=== PATIENT | female | born 1940 | race Caucasian/White ===

== ENCOUNTER 2020-02-07 23:21 | Emergency (ER) | payer MEDICARE ==
[~2020-02-07] VITALS: Ht 167.6 cm; Wt 65.9 kg
--- NOTE | 2020-02-07 23:55 | PHYS DOC ---
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 Alcohol Use: None General Adult EDM: Chief Complaint: WEAKNESS/GENERALIZED HPI: HPI: The history was obtained from the patient. Patient is a 79-year-old female with PMH diabetes, hypertension, ulcerative colitis status post colectomy who presents with a chief complaint of generalized weakness. Patient states 2 hours prior to arrival she began developing generalized weakness. She states she noted extreme lightheadedness when she went to stand up and try to ambulate. She notes a history of low sodium that is required IV fluids in the past. She states she is on water restriction at home. She states she feels as though her sodium is low again. She denies any polyuria, dysuria, hematuria. She denies any polydipsia. Denies any chest pain. Does note some shortness of breath particular when she breathes in deeply. Denies any history of blood clot in legs or lungs. Notes a history of colectomy years ago due to ulcerative colitis. Denies any changes to her ostomy output. Denies syncope. Denies recent changes to her medications. States she is been instructed over time she feels generally weak to report to the emergency department. She does note 1 episode of vomiting prior to arrival. No other complaints. Review of Systems: Review of Systems: Constitutional: General weakness Eyes: Denies change in visual acuity HENT: Denies nasal congestion or sore throat Respiratory: Denies cough or shortness of breath Cardiovascular: Denies chest pain or edema GI: Positive for vomiting : Denies dysuria Musculoskeletal: Denies back pain or joint pain Integument: Denies rash Neurologic: Denies headache, focal weakness or sensory changes Endocrine: Denies polyuria or polydipsia Lymphatic: Denies swollen glands Psychiatric: Denies depression or anxiety Heart Score: Risk Factors: Risk Factors: DM, Current or recent (<one month) smoker, HTN, HLP, family history of CAD, obesity. Risk Scores: Score 0 - 3: 2.5% MACE over next 6 weeks - Discharge Home Score 4 - 6: 20.3% MACE over next 6 weeks - Admit for Clinical Observation Score 7 - 10: 72.7% MACE over next 6 weeks - Early Invasive Strategies Allergies: Allergies: Allergies Coded Allergies Type Severity Reaction Last Updated Verified Penicillins Allergy Intermediate 02/07/20 Yes Physical Exam: PE: Constitutional: Well developed, well nourished, no acute distress, non-toxic appearance. [] HENT: Normocephalic, atraumatic, bilateral external ears normal, oropharynx moist, no oral exudates, nose normal. [] Eyes: PERRLA, EOMI, conjunctiva normal, no discharge. [] Neck: Normal range of motion, no tenderness, supple, no stridor. [] Cardiovascular:Heart rate regular rhythm, no murmur [] Lungs & Thorax: Bilateral breath sounds clear to auscultation [] Abdomen: soft, no tenderness, no masses, no pulsatile masses. [] Skin: Warm, dry, no erythema, no rash. [] Back: No tenderness, no CVA tenderness. [] Extremities: No tenderness, no cyanosis, no clubbing, ROM intact, no edema. Left AKA noted. [] Neurologic: Alert with intact cognitive function. No aphasia, dysarthria, or neglect. GCS 15. Pupils 3 mm briskly reactive b/l. No APD present. Cranial nerves 2-12 grossly intact; no facial asymmetry present, tongue midline, shoulder shrugging strength intact. Strength 5/5 and symmetric throughout. Light touch sensation intact throughout. Cerebellar testing appropriate without evidence of dysdiadochokinesia. DTR's 2+ in all 4 extremities. Negative pronator drift bilaterally. Gait deferred. Psychologic: Affect normal, judgement normal, mood normal. [] Current Patient Data: Labs: Laboratory Tests Test 02/08/20 00:25 02/08/20 00:35 Urine Collection Type Unknown Urine Color Yellow Urine Clarity Clear Urine pH 7.5 Urine Specific [place] 1.020 Urine Protein Neg Urine Glucose (UA) Neg mg/dL Urine Ketones (Stick) Neg mg/dL Urine Blood Trace Urine Nitrite Neg Urine Bilirubin Neg Urine Urobilinogen Dipstick 0.2 mg/dL Urine Leukocyte Esterase Neg Urine RBC 1-2 /HPF Urine WBC Occ /HPF Urine Squamous Epithelial Cells Occ /LPF Urine Bacteria 0 /HPF White Blood Count 8.5 x10^3/uL Red Blood Count 4.33 x10^6/uL Hemoglobin 13.8 g/dL Hematocrit 40.0 % Mean Corpuscular Volume 92 fL Mean Corpuscular Hemoglobin 32 pg Mean Corpuscular Hemoglobin Concent 35 g/dL Red Cell Distribution Width 13.3 % Platelet Count 176 x10^3/uL Neutrophils (%) (Auto) 83 % Lymphocytes (%) (Auto) 8 % Monocytes (%) (Auto) 7 % Eosinophils (%) (Auto) 2 % Basophils (%) (Auto) 0 % Neutrophils # (Auto) 7.0 x10^3uL Lymphocytes # (Auto) 0.6 x10^3/uL Monocytes # (Auto) 0.6 x10^3/uL Eosinophils # (Auto) 0.2 x10^3/uL Basophils # (Auto) 0.0 x10^3/uL Sodium Level 132 mmol/L Potassium Level 4.0 mmol/L Chloride Level 98 mmol/L Carbon Dioxide Level 25 mmol/L Anion Gap 9 Blood Urea Nitrogen 10 mg/dL Creatinine 0.7 mg/dL Estimated GFR (Cockcroft-Gault) 80.9 BUN/Creatinine Ratio 14 Glucose Level 127 mg/dL Calcium Level 9.9 mg/dL Total Bilirubin 0.8 mg/dL Aspartate Amino Transf (AST/SGOT) 34 U/L Alanine Aminotransferase (ALT/SGPT) 42 U/L Alkaline Phosphatase 87 U/L Troponin I Quantitative < 0.017 ng/mL Total Protein 7.5 g/dL Albumin 4.1 g/dL Albumin/Globulin Ratio 1.2 Lipase 30 U/L Current Medications Medications (Trade) Dose Ordered Sig/Reji Route PRN Reason Start Time Stop Time Status Last Admin Dose Admin Sodium Chloride 1,000 ml @ 1,000 mls/hr 1X ONCE IV 02/08/20 01:30 02/08/20 02:29 02/08/20 01:20 Vital Signs: Vital Signs Date Time Temp Pulse Resp B/P (MAP) Pulse Ox O2 Delivery O2 Flow Rate FiO2 02/07/20 23:37 98.2 70 16 128/76 (93) 97 Room Air EKG: EKG: EKG consistent with normal sinus rhythm. Ventricular rate of 74 bpm. [place] normal. Intervals normal. No acute ischemic changes noted. [] Radiology/Procedures: Radiology/Procedures: [address] [address] IMAGING REPORT Signed PATIENT: ENRIQUE DE JESUS ACCOUNT: [id number] : 1940 LOCATION: ER AGE: 79 SEX: F EXAM STATUS: PRE ER ORD. PHYSICIAN: DORA ZAVALA DO REASON: sob PROCEDURE: CHEST AP ONLY EXAM: CHEST 1 VIEW History: Shortness of breath COMPARISON: None available. TECHNIQUE: Single portable radiograph of the chest FINDINGS: The cardiac silhouette is unremarkable. Small 4 mm nodule or calcified granuloma identified in the right midlung zone. The costophrenic sulci are clear and well demarcated. The osseous structures and soft tissues are unremarkable. IMPRESSION: Small 4 mm nodule or calcified granuloma identified in the right midlung zone. Electronically signed by: Michael Myrick MD (02/08/2020 12:59 AM) [id number] DICTATED AND SIGNED BY: MICHAEL MYRICK MD DATE: 02/08/20 0059 CC: DORA ZAVALA DO ~ [] Course & Med Decision Making: Course & Med Decision Making Pertinent Labs and Imaging studies reviewed. (See chart for details) [] Patient is very pleasant 79-year-old female presents with a chief complaint of generalized weakness and one episode of vomiting. Vital signs unremarkable. Exam grossly unremarkable. No focal neurologic deficits noted. EKG without ischemic changes. She states this is most likely related to low sodium. Chemistry panel was obtained and does show sodium 132. States this is typical of most of her sodium levels when she feels this way. 1 L normal saline was administered. Remainder of laboratory analysis unremarkable. CT imaging will be deferred given she has no focal neurologic deficits or headache. Furthermore her abdomen has no reproducible tenderness on exam therefore CT of the abdomen will be deferred. After fluid administration patient states she feels significantly better. She has tolerated p.o. and has been able to ambulate without difficulty. I did discuss the possibility of hospitalization for observation versus discharge home with close monitoring. She is electing for discharge home. Overall I do feel this is reasonable. Return precautions were discussed and understood. She was instructed to follow-up with her primary care physician. I did offer to discharge her home with antinausea medication however she is declining at this time. Stable for discharge. Dragon Disclaimer: Dragon Disclaimer: This electronic medical record was generated, in whole or in part, using a voice recognition dictation system. Departure Departure: Impression: Primary Impression: Lung nodule Additional Impression: Hyponatremia Disposition: HOME/RESIDENCE PRIOR TO ADM Condition: STABLE Patient Instructions: Hyponatremia Additional Instructions: Please return the emergency department in 12 to 24 hours should her symptoms not improve or worsen. Please follow-up with your primary care physician in the next 2 to 3 days. Justification of Admission: Justification of Admission: Justification of Admission Dx: N/A DORA ZAVALA DO Feb 07, 2020 23:55
[2020-02-08 00:57] LABS: BASO % 0 % (0-3); EOS # 0.2 x10^3/uL (0.0-0.7); EOS % 2 % (0-3); HEMOGLOBIN 13.8 g/dL (12.0-15.5); LYMPH # 0.6 x10^3/uL (1.0-4.8); LYMPH % 8 % (24-48); MEAN CORPUSCULAR HEMOGLOBIN 32 pg (25-35); MEAN CORPUSCULAR HGB CONC 35 g/dL (31-37); MEAN CORPUSCULAR VOLUME 92 fL (79-100); MONO # 0.6 x10^3/uL (0.0-1.1); MONO % 7 % (0-9); NEUT % 83 % (31-73); PLATELET COUNT 176 x10^3/uL (140-400); RED BLOOD COUNT 4.33 x10^6/uL (3.50-5.40); RED CELL DISTRIBUTION WIDTH 13.3 % (11.5-14.5); WHITE BLOOD COUNT 8.5 x10^3/uL (4.0-11.0)
--- NOTE | 2020-02-08 01:02 | RAD ---
EXAM: CHEST 1 VIEW History: Shortness of breath COMPARISON: None available. TECHNIQUE: Single portable radiograph of the chest FINDINGS: The cardiac silhouette is unremarkable. Small 4 mm nodule or calcified granuloma identified in the right midlung zone. The costophrenic sulci are clear and well demarcated. The osseous structures and soft tissues are unremarkable. IMPRESSION: Small 4 mm nodule or calcified granuloma identified in the right midlung zone. Electronically signed by: Michael Myrick MD (02/08/2020 12:59 AM) [id number]
[2020-02-08 01:03] LABS: CALCIUM 9.9 mg/dL (8.5-10.1); CREATININE 0.7 mg/dL (0.6-1.0); GFR 80.9
[2020-02-08 01:06] LABS: BILIRUBIN,URINE NEG (NEG); CLARITY,URINE CLEAR; COLOR,URINE YELLOW; GLUCOSE,URINE NEG (NEG); NITRITE,URINE NEG (NEG); UROBILINOGEN,URINE 0.2 mg/dL (0.2 mg/dL)
[2020-02-08 01:07] LABS: BACTERIA,URINE 0 /HPF (0-FEW); SQUAMOUS EPITHELIAL CELL,UR OCC /LPF; WBC,URINE OCC /HPF (0-4)
[2020-02-08 01:09] LABS: ALBUMIN 4.1 g/dL (3.4-5.0); ALBUMIN/GLOBULIN RATIO 1.2 (1.0-1.7); TOTAL BILIRUBIN 0.8 mg/dL (0.2-1.0); TOTAL PROTEIN 7.5 g/dL (6.4-8.2)
[2020-02-08] MEDS ORDERED: IV NORMAL SALINE 1,000ML 1,000 ML IV ONE (01:30)
[2020-02-08 02:00] VITALS: BP 130/88
--- NOTE | 2020-02-09 07:30 | EKG ---
[address] [address] Test Date: 2020-02-07 Test Time: 23:54:07 Pat Name: ENRIQUE DE JESUS Department: Room: Gender: F Administration Dean: : 1940 Requested By: DOAR ZAVALA Order Number: [id number] Reading MD: Measurements Intervals [place] Rate: 74 P: -90 NE: 174 QRS: 52 QRSD: 76 T: 44 QT: 390 QTc: 438 Interpretive Statements SINUS RHYTHM NORMAL ECG RI6.02 No previous ECG available for comparison
== END 2020-02-08 02:15 | disposition home or self-care (01) ==
LOC: ER 23:21
DX: R91.1 Solitary pulmonary nodule (principal); E87.1 Hypo-osmolality and hyponatremia; E11.9 Type 2 diabetes mellitus without complications; I10 Essential (primary) hypertension; Z90.49 Acquired absence of other specified parts of digestive tract; Z88.0 Allergy status to penicillin
CPT/HCPCS: 36415; 71045; 80053; 81001; 83690; 84484; 85025; 93005; 96360; 99285; J7030

== ENCOUNTER 2020-12-26 12:30 | Emergency (ER) | payer MEDICARE ==
[~2020-12-26] VITALS: Ht 167.6 cm; Wt 70.4 kg
[2020-12-26 12:38] VITALS: BP 135/60
[2020-12-26] MEDS ORDERED: IV NORMAL SALINE 1,000ML 1,000 ML IV ONE (12:45)
--- NOTE | 2020-12-26 12:50 | RAD ---
EXAM: Chest, single view. HISTORY: Syncope. COMPARISON: 02/08/2020. FINDINGS: A frontal view of the chest is obtained. There is no infiltrate, pleural effusion or pneumo thorax. The heart is normal in size. There are calcified granulomas. IMPRESSION: No acute pulmonary finding. Electronically signed by: Dorina Hines MD (12/26/2020 12:48 PM) [id number]
--- NOTE | 2020-12-26 12:57 | PHYS DOC ---
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 Alcohol Use: None General Adult EDM: Chief Complaint: SYNCOPE HPI: HPI: 80-year-old female presents with syncopal episode. Patient tells me that she was sitting in a chair at home when she started to feel woozy. She thought it might be her blood sugar getting low so she had her check it. The patient continued to not feel well and at some point lost consciousness. She remembers waking up out of the chair and on the floor. She denies any pain or injuries. She had one episode of vomiting. Her attended to her until EMS arrived. She is feeling normal at this time. She has had an episode like this in the past with a low sodium. She has been taking all of her medications. She denies any other feelings of illness prior to this episode. Denies fever or chills at home. Review of Systems: Review of Systems: Constitutional: Denies fever or chills Eyes: Denies change in visual acuity HENT: Denies nasal congestion or sore throat Respiratory: Denies cough or shortness of breath Cardiovascular: Denies chest pain or edema GI: Vomiting. Denies abdominal pain, nausea, bloody stools or diarrhea : Denies dysuria Musculoskeletal: Denies back pain or joint pain Integument: Denies rash Neurologic: Syncope. Denies headache, focal weakness or sensory changes Endocrine: Denies polyuria or polydipsia Lymphatic: Denies swollen glands Psychiatric: Denies depression or anxiety Current Medications: Current Meds: Current Medications Medications (Trade) Dose Ordered Sig/Reji Start Time Stop Time Status Last Admin Dose Admin Sodium Chloride 1,000 ml @ 1,000 mls/hr 1X ONCE 12/26/20 12:45 12/26/20 13:44 Allergies: Allergies: Allergies Coded Allergies Type Severity Reaction Last Updated Verified Penicillins Allergy Intermediate 12/26/20 Yes Physical Exam: PE: Constitutional: Well developed, well nourished, no acute distress, non-toxic appearance. [] HENT: Normocephalic, atraumatic, bilateral external ears normal, oropharynx moist, no oral exudates, nose normal. [] Eyes: PERRLA, EOMI, conjunctiva normal, no discharge. [] Neck: Normal range of motion, no tenderness, supple, no stridor. [] Cardiovascular:Heart rate regular rhythm, no murmur [] Lungs & Thorax: Bilateral breath sounds clear to auscultation [] Abdomen: Bowel sounds normal, soft, no tenderness, no masses, no pulsatile masses. [] Skin: Warm, dry, no erythema, no rash. [] Back: No tenderness, no CVA tenderness. [] Extremities: No tenderness, no cyanosis, no clubbing, ROM intact, no edema. [] Neurologic: Alert and oriented X 3, normal motor function, normal sensory function, no focal deficits noted. [] Psychologic: Affect normal, judgement normal, mood normal. [] Current Patient Data: Vital Signs: Vital Signs Date Time Temp Pulse Resp B/P (MAP) Pulse Ox O2 Delivery O2 Flow Rate FiO2 12/26/20 12:38 97.7 57 15 135/60 67 Room Air EKG: EKG: [] Radiology/Procedures: Radiology/Procedures: [] Impressions: EXAM: Chest, single view. HISTORY: Syncope. COMPARISON: 02/08/2020. FINDINGS: A frontal view of the chest is obtained. There is no infiltrate, pleural effusion or pneumothorax. The heart is normal in size. There are calcifi ed granulomas. IMPRESSION: No acute pulmonary finding. Electronically signed by: Dorina Hines MD (12/26/2020 12:48 PM) [id number] DICTATED AND SIGNED BY: DORINA HINES MD DATE: 12/26/20 1247 CC: FAUSTO LEONE DO; MALA NEIL ~MTH0 0 Heart Score: C/O Chest Pain: N/A Risk Factors: Risk Factors: DM, Current or recent (<one month) smoker, HTN, HLP, family history of CAD, obesity. Risk Scores: Score 0 - 3: 2.5% MACE over next 6 weeks - Discharge Home Score 4 - 6: 20.3% MACE over next 6 weeks - Admit for Clinical Observation Score 7 - 10: 72.7% MACE over next 6 weeks - Early Invasive Strategies Course & Med Decision Making: Course & Med Decision Making Pertinent Labs and Imaging studies reviewed. (See chart for details) The patient's labs are unremarkable. Her EKG is unremarkable. Her chest x-ray is unremarkable. Urinalysis was negative for infection. The patient did require a liter of normal saline before she was able to urinate. This may have been vasovagal syncope due to dehydration. She is stable for discharge at this time. [] [place] Disclaimer: Enzo Disclaimer: This electronic medical record was generated, in whole or in part, using a voice recognition dictation system. Departure Departure: Impression: Primary Impression: Syncope Qualified Codes: R55 - Syncope and collapse Disposition: HOME / SELF CARE / HOMELESS Condition: STABLE Referrals: MALA NEIL (PCP) Patient Instructions: Syncope, Eona-zq-Bleg Scripts Nystatin (NYSTATIN) 15 Gm Powder 1 MERARY TP BID for yeast infection for 7 Days, #1 BOTTLE 0 Refills apply to affected area(s) Prov: FAUSTO LEONE DO 12/26/20 FAUSTO LEONE DO Dec 26, 2020 12:57
--- NOTE | 2020-12-26 13:06 | EKG ---
[address] [address] Test Date: 2020-12-26 Test Time: 13:00:04 Pat Name: ENRIQUE DE JESUS Department: Room: Gender: F Construction Crew Member: ADEEL : 1940 Requested By: FAUSTO LEONE Order Number: [id number] Reading MD: Measurements Intervals [place] Rate: 70 P: 0 ME: 172 QRS: 24 QRSD: 78 T: -2 QT: 438 QTc: 476 Interpretive Statements SINUS RHYTHM LOW LIMB LEAD VOLTAGE PROLONGED QT NO SPECIFIC ECG ABNORMALITIES RI6.02 No previous ECG available for comparison
[2020-12-26 13:27] LABS: BASO % 1 % (0-3); EOS # 0.2 x10^3/uL (0.0-0.7); EOS % 3 % (0-3); HEMATOCRIT 37.9 % (36.0-47.0); LYMPH # 1.8 x10^3/uL (1.0-4.8); LYMPH % 25 % (24-48); MEAN CORPUSCULAR HEMOGLOBIN 32 pg (25-35); MEAN CORPUSCULAR HGB CONC 34 g/dL (31-37); MEAN CORPUSCULAR VOLUME 92 fL (79-100); MONO # 0.5 x10^3/uL (0.0-1.1); MONO % 7 % (0-9); NEUT # 4.7 x10^3uL (1.8-7.7); NEUT % 65 % (31-73); PLATELET COUNT 259 x10^3/uL (140-400); RED BLOOD COUNT 4.11 x10^6/uL (3.50-5.40); RED CELL DISTRIBUTION WIDTH 12.8 % (11.5-14.5); WHITE BLOOD COUNT 7.3 x10^3/uL (4.0-11.0)
[2020-12-26 13:37] LABS: CALCIUM 9.4 mg/dL (8.5-10.1); CREATININE 0.6 mg/dL (0.6-1.0); GFR 96.4; POTASSIUM 3.8 mmol/L (3.5-5.1)
[2020-12-26 13:42] LABS: ALBUMIN 3.6 g/dL (3.4-5.0); ALBUMIN/GLOBULIN RATIO 1.2 (1.0-1.7); TOTAL BILIRUBIN 0.7 mg/dL (0.2-1.0); TOTAL PROTEIN 6.7 g/dL (6.4-8.2)
[2020-12-26] MEDS ORDERED: NYST15PO9 TP (13:53)
[2020-12-26 15:11] LABS: BACTERIA,URINE FEW /HPF (0-FEW); BILIRUBIN,URINE NEG (NEG); CLARITY,URINE CLEAR; COLOR,URINE YELLOW; GLUCOSE,URINE NEG (NEG); NITRITE,URINE NEG (NEG); RBC,URINE RARE /HPF (0-2); SQUAMOUS EPITHELIAL CELL,UR OCC /LPF; UROBILINOGEN,URINE 0.2 mg/dL (0.2 mg/dL)
[2020-12-26 15:12] LABS: HYALINE CASTS, URINE OCC /HPF
== END 2020-12-26 14:27 | disposition home or self-care (01) ==
LOC: ER 12:30
DX: R55 Syncope and collapse (principal); R42 Dizziness and giddiness; R11.10 Vomiting, unspecified; E11.9 Type 2 diabetes mellitus without complications; I10 Essential (primary) hypertension; Z88.0 Allergy status to penicillin
CPT/HCPCS: 36415; 71045; 80053; 81001; 84484; 85025; 93005; 96360; 96361; 99285; J7030